=== PATIENT | female | born 1955 | race Two or more races ===

== ENCOUNTER 2019-04-18 07:37 | Outpatient (CLI) | payer OTHER | END 2019-04-18 07:49 | disposition home or self-care (01) | LOC: SONOGRAMA 07:37 → MAMO-SONO 07:45 → SONOGRAMA 07:49 | DX: R31.29 Other microscopic hematuria (principal) ==

== ENCOUNTER 2020-08-05 03:26 | Emergency (ER) | payer OTHER ==
[~2020-08-05] VITALS: Ht 160 cm; Wt 67.1 kg
[2020-08-05] MEDS ORDERED: ATORVASTATIN CA10 MG (03:53)
[2020-08-05] MEDS ORDERED: CIPRO500 MG PO (06:09)
[2020-08-05] MEDS ORDERED: PYRIDIUM DS200 MG PO (06:09)
== END 2020-08-05 06:27 | disposition home or self-care (01) ==
LOC: ER 03:26
DX: N30.80 Other cystitis without hematuria (principal)

== ENCOUNTER 2021-02-11 07:35 | Outpatient (CLI) | payer OTHER ==
[~2021-02-11 07:35] MED LIST: ATORVASTATIN CA10 MG; CIPRO500 MG PO; PYRIDIUM DS200 MG PO
== END 2021-02-11 07:40 | disposition home or self-care (01) ==
LOC: NUCLEAR 07:35
PROVIDERS: ATTEND Internal Medicine Cardiovascular Disease
DX: R07.89 Other chest pain (principal)
CPT/HCPCS: 78452; 93017; A9500

== ENCOUNTER → 2024-08-29 07:14 | Outpatient (CLI) | payer OTHER | END | disposition home or self-care (01) | LOC: NUCLEAR 07:00 | PROVIDERS: ATTEND Internal Medicine | DX: I20.9 Angina pectoris, unspecified (principal) | CPT/HCPCS: 78452; 93017; A9500 ==